=== PATIENT | male | born 1950 | race Hispanic/Latino ===

== ENCOUNTER 2018-05-09 17:13 | Emergency (ER) | payer MEDICARE ==
[2018-05-09] MEDS ORDERED: KETOROLAC TROMETHAMINE 15MG/ML ONE (17:21)
[2018-05-09] MEDS ORDERED: HYDROCODONE/ACETAMINOPHEN 10/325 MG TAB ONE (17:21)
== END 2018-05-09 19:15 | disposition home or self-care (01) ==
LOC: EDH 17:13
DX: S39.012A Strain of muscle, fascia and tendon of lower back, initial encounter (principal); I10 Essential (primary) hypertension; X50.9XXA Other and unspecified overexertion or strenuous movements or postures, initial encounter; Y93.89 Activity, other specified; Y92.89 Other specified places as the place of occurrence of the external cause; Y99.8 Other external cause status
CPT/HCPCS: 96372; 99283; J1885